=== PATIENT | male | born 1980 | race Caucasian/White ===

== ENCOUNTER → 2025-08-07 | Outpatient (CLI) | payer BC ==
--- NOTE | 2025-08-07 20:43 | RADIOLOGY REPORT ---
EXAM: MR MRI LOWER EXTREMITY LEFT INDICATION: PAIN IN LEFT FOOT TECHNIQUE: Multiplanar and multisequence MR imaging of the left ankle was performed in the absence of gadolinium contrast. COMPARISON: None FINDINGS: [MEDIAL ANKLE]: Intact posterior tibialis, flexor hallucis longus, and flexor digitorum tendons.. Intact deltoid ligament. Intact spring ligament complex. [LOW LATERAL ANKLE]: Intact anterior talofibular, posterior talofibular, and calcaneofibular ligaments. Intact peroneal brevis and longus tendons without tenosynovitis. [HIGH LATERAL ANKLE]: Intact anterior and posterior inferior tibiofibular ligaments. [ANTERIOR ANKLE]: Intact anterior tibialis, extensor digitorum longus, and extensor hallucis longus tendons. [POSTERIOR ANKLE]: No tibiotalar or subtalar joint effusion. Normal sinus Tarsi. Small plantar calcaneal spur. Minimal multiple adjacent edema and thickening of the central cord of the plantar fascia. Normal Achilles tendon. No retrocalcaneal bursitis. [MIDFOOT]: Normal. [BONES]: No acute fracture, osseous contusion, or aggressive osseous lesion. [MUSCLES]: Reactive muscle edema of the proximal course of the abductor digiti minimi [NEUROVASCULAR]: Normal tarsal tunnel [OTHER]: None IMPRESSION: 1. Mild plantar fasciitis. 2. Reactive muscle edema of the proximal course of the abductor digiti minimi.
== END | disposition home or self-care (01) ==
LOC: MRI02 09:35
PROVIDERS: ATTEND Podiatrist Foot & Ankle Surgery
DX: M72.2 Plantar fascial fibromatosis (principal); M79.672 Pain in left foot; R60.0 Localized edema
CPT/HCPCS: 73721